=== PATIENT | male | born 1970 | race Caucasian/White ===

== ENCOUNTER 2020-05-27 13:40 | Inpatient (IN) | payer OTHER ==
--- NOTE | 2020-05-27 14:03 | BHS.RME ---
Substance Use & Tx History - Substance Use History Alcohol Substance amount: 1/5 Vodka Frequency of use: Daily Substance route: Oral Date of Last Use: 05/26/20 (Began age 18y. NO seizures. Has had blackouts, last was mos ago. Admits to eye floral associate) Nicotine Substance amount: more than one pack Frequency of use: Daily Substance route: Smoking Date of Last Use: 05/27/20 (began age 24 y) - Last Treatment Date of last treatment: 2 mos ago [facility] Treatment type: Substance Use Disorder (ROLANDO) Where was last treatment: Detox Physical/Psych/Mental Status - Behavior General Behavior: Increased activity (restlessness, agitation) Eye Contact: Normal - Cooperativeness Cooperativeness: Cooperative - Thinking Thought Processes: Tight Thought content: Future oriented - Physical Health Problems Is patient presently having any pain?: No Does patient presently have any injuries (include location): No Does patient currently have a fever: No CIWA Nausea/Vomitin-Int. Nausea w/Dry Heave Muscle Tremors: 4-Moderate,w/Arms Extend Anxiety: 4-Mod. Anxious/Guarded Agitation: 4-Moderately Restless Paroxysmal Sweats: 3 Orientation: 0-Oriented Tacttile Disturbances: 1-Very Mild Itch/Numbness Auditory Disturbances: 0-None Visual Disturbances: 0-None Headache: 0-None Present CIWA-Ar Total Score: 20
[2020-05-27] MEDS ORDERED: MAGNESIUM CITRATE 300 ML BOTTLE PO PRN (14:09)
[2020-05-27] MEDS ORDERED: IBUPROFEN 400 MG TABLET (FP) PO PRN (14:09)
[2020-05-27] MEDS ORDERED: ACETAMINOPHEN 325 MG TABLET (FP) PO PRN ×2 (14:09)
[2020-05-27] MEDS ORDERED: ONDANSETRON *ODT* 4 MG TABLET SL PRN (14:09)
[2020-05-27] MEDS ORDERED: BISMUTH SUBSALICYLATE 524 MG/30 ML UD PO PRN (14:09)
[2020-05-27] MEDS ORDERED: METHOCARBAMOL 500 MG TABLET PO PRN (14:09)
[2020-05-27] MEDS ORDERED: MAGNESIUM HYDROX 2400MG/30ML ORAL SUSPENSION 30 ML CUP PO PRN (14:09)
[2020-05-27] MEDS ORDERED: MAG HYDROX/AL HYDROX/SIMETH 30 ML UNIT-DOSE CUP PO PRN (14:09)
[2020-05-27] MEDS ORDERED: MENTHOL/PHENOL 1 EACH UD MM PRN (14:09)
--- NOTE | 2020-05-27 14:09 | HP ---
CIWA Score Nausea/Vomitin-Int. Nausea w/Dry Heave Muscle Tremors: 4-Moderate,w/Arms Extend Anxiety: 4-Mod. Anxious/Guarded Agitation: 4-Moderately Restless Paroxysmal Sweats: 3 Orientation: 0-Oriented Tacttile Disturbances: 1-Very Mild Itch/Numbness Auditory Disturbances: 0-None Visual Disturbances: 0-None Headache: 0-None Present CIWA-Ar Total Score: 20 - Admission Criteria OASAS Guidelines: Admission for Medically Managed Detox: Requires at least one of the followin. CIWA greater than 12 2. Seizures within the past 24 hours 3. Delirium tremens within the past 24 hours 4. Hallucinations within the past 24 hours 5. Acute intervention needed for co occurring medical disorder 6. Acute intervention needed for co occurring psychiatric disorder 7. Severe withdrawal that cannot be handled at a lower level of care (continued vomiting, continued diarrhea, abnormal vital signs) requiring intravenous medication and/or fluids 8. Admitting History and Physical - Admission Chief Complaint: Mr. Quinteros is a 49 yo man who presents to [facility] [place] asking for detox from alcohol use. History of Present Illness: Mr. Quinteros is a 49 yo man who presents to [facility] [place] asking for detox from alcohol use. He was last here in 2016. PMH/PSH/ Legal: none Psych: depression on no meds, sees "colors" when detoxing, no other hallucinations SOC: homeless Substance Use History Alcohol Substance amount: 1/5 Vodka Frequency of use: Daily Substance route: Oral Date of Last Use: 05/26/20 (Began age 18y. NO seizures. Has had blackouts, last was mos ago. 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) Nicotine Substance amount: more than one pack Frequency of use: Daily Substance route: Smoking Date of Last Use: 05/27/20 (began age 24 y) - Last Treatment Date of last treatment: 2 mos ago [facility] Treatment type: Substance Use Disorder (ROLANDO) Where was last treatment: Detox - Smoking History Smoking history: Current every day smoker Have you smoked in the past 12 months: Yes Aproximately how many cigarettes per day: 30 - Alcohol/Substance Use Hx Alcohol Use: Yes Admission ROS S - HPI Allergies/Adverse Reactions: Allergies Allergy/AdvReac Type Severity Reaction Status Date / Time No Known Allergies Allergy Verified 05/27/20 14:40 Exam Limitations: No Limitations - Ebola screening Have you traveled outside of the country in the last 21 days: No Have you been sick,other than usual withdrawal symptoms: No Do you have a fever: No - Review of Systems Constitutional: Changes in sleep (Trouble falling and staying asleep. Lost about 12 lbs in the past few weeks), Unintentional Wgt. Loss EENT: reports: No Symptoms Reported Respiratory: reports: No Symptoms reported Cardiac: reports: No Symptoms Reported GI: reports: Nausea, Vomiting (attributes to withdrawal) : reports: No Symptoms Reported Musculoskeletal: reports: No Symptoms Reported Integumentary: reports: No Symptoms Reported Neuro: reports: Tingling (fingers and toes tingle for one week. No pain in neck, low back), Tremors (withdrawal sx) Endocrine: reports: No Symptoms Reported Hematology: reports: No Symptoms Reported Psychiatric: reports: Depressed (no SI/HI) Patient History - Patient Medical History Hx Anemia: No Hx Asthma: No Hx Chronic Obstructive Pulmonary Disease (COPD): No Hx Cancer: No Hx Cardiac Disorders: No Hx Congestive Heart Failure: No Hx Hypertension: No Hx Hypercholesterolemia: No Hx Pacemaker: No HX Cerebrovascular Accident: No Hx Seizures: No Hx Dementia: No Hx Diabetes: No Hx Gastrointestinal Disorders: No Hx Liver Disease: No Hx Genitourinary Disorders: No Hx Sexually Transmitted Disorders: No Hx Renal Disease (ESRD): No Hx Thyroid Disease: No Hx Human Immunodeficiency Virus (HIV): No Hx Hepatitis C: No Hx Depression: Yes Hx Suicide Attempt: No Hx Bipolar Disorder: No Hx Schizophrenia: No - Patient Surgical History Past Surgical History: No Hx Neurologic Surgery: No Hx Cataract Extraction: No Hx Cardiac Surgery: No Hx Lung Surgery: No Hx Breast Surgery: No Hx Breast Biopsy: No Hx Abdominal Surgery: No Hx Appendectomy: No Hx Cholecystectomy: No Hx Genitourinary Surgery: No Hx Section: No Hx Orthopedic Surgery: No Anesthesia Reaction: (n/a) - PPD History Date: 04/16/16 - Smoking Cessation Smoking history: Current every day smoker Have you smoked in the past 12 months: Yes Aproximately how many cigarettes per day: 30 Cigars Per Day: 0 Hx Chewing Tobacco Use: No Initiated information on smoking cessation: Yes 'Breaking Loose' booklet given: 05/27/20 - Substances abused Alcohol Substance route: Oral Frequency: Daily Amount used: 5th of vodka Age of first use: 18 Date of last use: 05/26/20 Admission Physical Exam S - Vital Signs Vital Signs: UDS: benzo - Physical General Appearance: Yes: Nourished, Appropriately Dressed, Disheveled, Tremorous, Anxious, Other (vomitted x 1 in [facility]) HEENTM: Yes: EOMI, Hearing grossly Normal, Normocephalic, Normal Voice Respiratory: Yes: Lungs Clear, No Respiratory Distress, No Accessory Muscle Use Neck: Yes: Within Normal Limits, Supple Breast: Yes: Breast Exam Deferred Cardiology: Yes: Regular Rhythm, Regular Rate Abdominal: Yes: Normal Bowel Sounds, Non Tender, Flat, Soft Back: Yes: Normal Inspection Musculoskeletal: Yes: Gait Steady Extremities: Yes: Normal Inspection, Non-Tender, Other (stool on leg) Neurological: Yes: Alert, Normal Response Integumentary: Yes: Normal Color, Dry, Warm - Diagnostic (1) Depression Current Visit: Yes Status: Acute (2) Alcohol dependence with uncomplicated withdrawal Current Visit: Yes Status: Acute (3) Nicotine dependence Current Visit: Yes Status: Chronic Qualifiers: Nicotine product type: cigarettes Substance use status: uncomplicated Qualified Code(s): F17.210 - Nicotine dependence, cigarettes, uncomplicated Cleared for Admission [facility] - Detox or Rehab [facility] Level of Care: Medically Managed Detox Regimen/Protocol: Librium Breathalyzer - Breathalyzer Breathalyzer: 0.061 Inpatient Rehab Admission - Rehab Decision to Admit Inpatient rehab admission?: No
[2020-05-27 14:47] VITALS: BMI 23.4
[2020-05-27] MEDS: chlordiazePOXIDE HCL 25 MG CAPSULE PO PRN (15:43)
[2020-05-27] MEDS: NICOTINE 21 MG/24 HOURS TOPICAL PATCH TD SCH (15:49)
[2020-05-27] MEDS: chlordiazePOXIDE HCL 25 MG CAPSULE PO SCH ×2 (17:44→22:00)
[2020-05-27] MEDS: hydrOXYzine PAMOATE 25 MG CAPSULE (FP) PO SCH ×2 (19:05→21:21)
[2020-05-27] MEDS: THIAMINE HCL 100 MG TABLET (FP) PO SCH (21:21)
[2020-05-27] MEDS ORDERED: MELATONIN 5 MG TABLETS PO SCH (22:00)
[2020-05-28] MEDS: hydrOXYzine PAMOATE 25 MG CAPSULE (FP) PO SCH (05:49)
[2020-05-28] MEDS: chlordiazePOXIDE HCL 25 MG CAPSULE PO SCH ×4 (05:49→22:00)
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
[2020-05-28] MEDS ORDERED: hydrOXYzine PAMOATE 25 MG CAPSULE (FP) PO PRN (09:17)
[2020-05-28] MEDS: chlordiazePOXIDE HCL 25 MG CAPSULE PO PRN ×2 (09:19→19:40)
[2020-05-28] MEDS: SERTRALINE HCL 50 MG TABLET (FP) PO SCH (10:13)
[2020-05-28] MEDS: PRENATAL VITAMINS W/ FOLIC ACID TABLET (FP) PO SCH (10:13)
[2020-05-28] MEDS: NICOTINE 21 MG/24 HOURS TOPICAL PATCH TD SCH (10:14)
[2020-05-28] MEDS: TOPIRAMATE 100 MG TABLET PO SCH ×2 (11:08→22:00)
--- NOTE | 2020-05-28 11:51 | PN ---
S CIWA - CIWA Score Nausea/Vomitin Muscle Tremors: 3 Anxiety: 3 Agitation: 3 Paroxysmal Sweats: No Perspiration Orientation: 0-Oriented Tacttile Disturbances: 1-Very Mild Itch/Numbness Auditory Disturbances: 0-None Visual Disturbances: 0-None Headache: 2-Mild CIWA-Ar Total Score: 15 BHS Progress Note (SOAP) Subjective: alert,irritable,anxious,interrupted sleep,tremor,pain in the body and back,nausea Objective: 05/28/20 11:57 Vital Signs Temperature 98.1 F 05/28/20 08:21 Pulse Rate 111 H 05/28/20 08:21 Respiratory Rate 16 05/28/20 08:21 Blood Pressure 115/65 05/28/20 08:21 O2 Sat by Pulse Oximetry (%) 95 05/28/20 05:48 05/28/20 11:58 labs pending Assessment: 05/28/20 11:58 withdrawal symptom Plan: continue detox librium regimen,Dr Ureña consultation greatly appreciated
[2020-05-28 12:25] LABS: HEMATOCRIT 38.3 % (35.4-49); HEMOGLOBIN 13.1 GM/dL (11.7-16.9); MCH 32.9 pg (25.7-33.7); MCHC 34.4 g/dl (32.0-35.9); MEAN CELL VOLUME 95.6 fl (80-96); MEAN PLT VOLUME 8.2 fl (7.5-11.1); PLATELET COUNT 76 K/MM3 (134-434); RDW 16.1 % (11.9-15.9); WHITE BLOOD COUNT 4.5 K/mm3 (4.0-10.0)
[2020-05-28 12:42] LABS: ALBUMIN 3.2 g/dl (3.4-5.0); BLOOD UREA NITROGEN 7.7 mg/dL (7-18); CALCIUM 9.3 mg/dL (8.5-10.1); CREATININE 0.6 mg/dL (0.55-1.3); POTASSIUM 3.2 mmol/L (3.5-5.1); TOT PROT 6.3 g/dl (6.4-8.2)
[2020-05-28] MEDS: NICOTINE POLACRILEX 2 MG GUM BUC PRN ×2 (19:40→22:05)
[2020-05-28] MEDS ORDERED: SUVOREXANT 10 MG TABLET PO PRN (22:00)
[2020-05-28] MEDS ORDERED: ARIPiprazole 10 MG TABLET PO SCH (22:00)
[2020-05-28] MEDS: THIAMINE HCL 100 MG TABLET (FP) PO SCH (22:00)
[2020-05-29] MEDS: chlordiazePOXIDE HCL 25 MG CAPSULE PO SCH ×2 (06:03→10:40)
[2020-05-29] MEDS: NICOTINE POLACRILEX 2 MG GUM BUC PRN ×2 (06:05→10:40)
[2020-05-29] MEDS: NICOTINE 21 MG/24 HOURS TOPICAL PATCH TD SCH (10:40)
[2020-05-29] MEDS: PRENATAL VITAMINS W/ FOLIC ACID TABLET (FP) PO SCH (10:40)
[2020-05-29] MEDS: SERTRALINE HCL 50 MG TABLET (FP) PO SCH (10:40)
[2020-05-29] MEDS: TOPIRAMATE 100 MG TABLET PO SCH (10:40)
--- NOTE | 2020-05-29 10:54 | PN ---
S CIWA - CIWA Score Nausea/Vomitin Muscle Tremors: 2 Anxiety: 2 Agitation: 2 Paroxysmal Sweats: No Perspiration Orientation: 0-Oriented Tacttile Disturbances: 1-Very Mild Itch/Numbness Auditory Disturbances: 0-None Visual Disturbances: 0-None Headache: 1-Very Mild CIWA-Ar Total Score: 10 S Progress Note (SOAP) Subjective: alert,irritable,anxious,interrupted sleep,tremor,aching pain,nausea Objective: 05/29/20 10:53 Vital Signs Temperature 97.4 F L 05/29/20 08:49 Pulse Rate 100 H 05/29/20 08:49 Respiratory Rate 16 05/29/20 08:49 Blood Pressure 118/71 05/29/20 08:49 O2 Sat by Pulse Oximetry (%) 97 05/29/20 08:49 05/29/20 10:53 Laboratory Last Values WBC 4.5 K/mm3 (4.0-10.0) 05/28/20 07:45 RBC 4.00 M/mm3 (4.00-5.60) 05/28/20 07:45 Hgb 13.1 GM/dL (11.7-16.9) 05/28/20 07:45 Hct 38.3 % (35.4-49) D 05/28/20 07:45 MCV 95.6 fl (80-96) 05/28/20 07:45 MCH 32.9 pg (25.7-33.7) 05/28/20 07:45 MCHC 34.4 g/dl (32.0-35.9) 05/28/20 07:45 RDW 16.1 % (11.9-15.9) H 05/28/20 07:45 Plt Count 76 K/MM3 (134-434) L D 05/28/20 07:45 MPV 8.2 fl (7.5-11.1) 05/28/20 07:45 Sodium 136 mmol/L (136-145) 05/28/20 07:45 Potassium 3.2 mmol/L (3.5-5.1) L 05/28/20 07:45 Chloride 92 mmol/L (98-107) L 05/28/20 07:45 Carbon Dioxide 32 mmol/L (21-32) 05/28/20 07:45 Anion Gap 12 MMOL/L (8-16) 05/28/20 07:45 BUN 7.7 mg/dL (7-18) 05/28/20 07:45 Creatinine 0.6 mg/dL (0.55-1.3) 05/28/20 07:45 Est GFR (CKD-EPI)AfAm 138.77 05/28/20 07:45 Est GFR (CKD-EPI)NonAf 119.73 05/28/20 07:45 Random Glucose 150 mg/dL (74-106) H 05/28/20 07:45 Calcium 9.3 mg/dL (8.5-10.1) 05/28/20 07:45 Total Bilirubin 1.0 mg/dL (0.2-1) 05/28/20 07:45 AST 112 U/L (15-37) H 05/28/20 07:45 ALT 88 U/L (13-61) H 05/28/20 07:45 Alkaline Phosphatase 150 U/L (45-117) H 05/28/20 07:45 Total Protein 6.3 g/dl (6.4-8.2) L 05/28/20 07:45 Albumin 3.2 g/dl (3.4-5.0) L 05/28/20 07:45 Syphilis Serology Non-reactive (NONREACTIVE) 05/28/20 07:45 COVID-19 ([facility]J) Not detected (Not Detected) 05/27/20 14:45 HIV Ag/Ab Combo Qual Negative (NEGATIVE) 05/28/20 07:45 Assessment: 05/29/20 10:57 withdrawal symptom Plan: continue detox librium regimen,,k dur 20 meq po bid k is 3.2,glucose 150,will repeat cmp,fasting glucose and inr in am
[2020-05-29 13:44] VITALS: BP 120/79; PULSE 93; TEMP 98.2
--- NOTE | 2020-05-29 15:26 | PN ---
[facility] CIWA - CIWA Score Nausea/Vomitin-No Nausea/No Vomiting Muscle Tremors: None Anxiety: 1-Mildly Anxious Agitation: 0-Normal Activity Paroxysmal Sweats: No Perspiration Orientation: 0-Oriented Tacttile Disturbances: 0-None Auditory Disturbances: 0-None Visual Disturbances: 0-None Headache: 0-None Present CIWA-Ar Total Score: 1 S Progress Note (SOAP) Subjective: alert,no complaint Objective: 05/29/20 15:24 Vital Signs Temperature 98.2 F 05/29/20 12:59 Pulse Rate 93 H 05/29/20 12:59 Respiratory Rate 19 05/29/20 12:59 Blood Pressure 120/79 05/29/20 12:59 O2 Sat by Pulse Oximetry (%) 97 05/29/20 12:59 Assessment: 05/29/20 15:24 no withdrawal symptom Plan: stable for discharge today,left style diet modification,no sugar,follow up with after care program as [facility],dump attendant notified, he will send psy medication to [facility]
--- NOTE | 2020-05-29 15:29 | DS ---
[facility] Detox Discharge Summary Admission Date: 05/27/20 Discharge Date: 05/29/20 - History Present History: Alcohol Dependence Additional Comments: alert,oriented x 3 ambulation on the unit lung clear on auscultation bilaterally abdomen soft,no distension,no pain,no tenderness patient would like to leave stated he is feeling well,no tremor, stable for discharge today follow up with [facility] center as arrangement life style modification on diet no sugar left the unit in stable condition total time of discharge 35 minutes Pertinent Past History: bipolar 2 disorder ptsd - Physical Exam Results Vital Signs: Vital Signs Temperature 98.2 F 05/29/20 12:59 Pulse Rate 93 H 05/29/20 12:59 Respiratory Rate 19 05/29/20 12:59 Blood Pressure 120/79 05/29/20 12:59 O2 Sat by Pulse Oximetry (%) 97 05/29/20 12:59 Pertinent Admission Physical Exam Findings: withdrawal signs and symptom Laboratory Last Values WBC 4.5 K/mm3 (4.0-10.0) 05/28/20 07:45 RBC 4.00 M/mm3 (4.00-5.60) 05/28/20 07:45 Hgb 13.1 GM/dL (11.7-16.9) 05/28/20 07:45 Hct 38.3 % (35.4-49) D 05/28/20 07:45 MCV 95.6 fl (80-96) 05/28/20 07:45 MCH 32.9 pg (25.7-33.7) 05/28/20 07:45 MCHC 34.4 g/dl (32.0-35.9) 05/28/20 07:45 RDW 16.1 % (11.9-15.9) H 05/28/20 07:45 Plt Count 76 K/MM3 (134-434) L D 05/28/20 07:45 MPV 8.2 fl (7.5-11.1) 05/28/20 07:45 Sodium 136 mmol/L (136-145) 05/28/20 07:45 Potassium 3.2 mmol/L (3.5-5.1) L 05/28/20 07:45 Chloride 92 mmol/L (98-107) L 05/28/20 07:45 Carbon Dioxide 32 mmol/L (21-32) 05/28/20 07:45 Anion Gap 12 MMOL/L (8-16) 05/28/20 07:45 BUN 7.7 mg/dL (7-18) 05/28/20 07:45 Creatinine 0.6 mg/dL (0.55-1.3) 05/28/20 07:45 Est GFR (CKD-EPI)AfAm 138.77 05/28/20 07:45 Est GFR (CKD-EPI)NonAf 119.73 05/28/20 07:45 Random Glucose 150 mg/dL (74-106) H 05/28/20 07:45 Calcium 9.3 mg/dL (8.5-10.1) 05/28/20 07:45 Total Bilirubin 1.0 mg/dL (0.2-1) 05/28/20 07:45 AST 112 U/L (15-37) H 05/28/20 07:45 ALT 88 U/L (13-61) H 05/28/20 07:45 Alkaline Phosphatase 150 U/L (45-117) H 05/28/20 07:45 Total Protein 6.3 g/dl (6.4-8.2) L 05/28/20 07:45 Albumin 3.2 g/dl (3.4-5.0) L 05/28/20 07:45 Syphilis Serology Non-reactive (NONREACTIVE) 05/28/20 07:45 COVID-19 ([facility]) Not detected (Not Detected) 05/27/20 14:45 HIV Ag/Ab Combo Qual Negative (NEGATIVE) 05/28/20 07:45 Vital Signs Temperature 98.2 F 05/29/20 12:59 Pulse Rate 93 H 05/29/20 12:59 Respiratory Rate 19 05/29/20 12:59 Blood Pressure 120/79 05/29/20 12:59 O2 Sat by Pulse Oximetry (%) 97 05/29/20 12:59 - Treatment Hospital Course: Detox Protocol Followed, Detoxed Safely, Responded well, Discharged Condition Good Patient has Accepted a Rehab Referral to: declined - Medication Discharge Medications: Ambulatory Orders Aripiprazole [Abilify] 20 mg PO HS #14 tablet 05/29/20 Sertraline HCl [Zoloft -] 50 mg PO DAILY #14 tablet 05/29/20 Topiramate [Topamax -] 100 mg PO BID #28 tablet 05/29/20 - Diagnosis (1) Alcohol dependence with uncomplicated withdrawal Current Visit: Yes Status: Acute (2) Depression Current Visit: Yes Status: Acute (3) Nicotine dependence Current Visit: Yes Status: Chronic Qualifiers: Nicotine product type: cigarettes Substance use status: uncomplicated Qualified Code(s): F17.210 - Nicotine dependence, cigarettes, uncomplicated (4) ADHD (attention deficit hyperactivity disorder) Current Visit: No Status: Chronic (5) Bipolar II disorder Current Visit: No Status: Chronic - AMA Did Patient Leave Against Medical Advice: No
[2020-05-30] MEDS ORDERED: chlordiazePOXIDE HCL 10 MG CAPSULE PO PRN
[2020-05-30] MEDS ORDERED: chlordiazePOXIDE HCL 10 MG CAPSULE PO SCH (05:00)
[2020-05-31] MEDS ORDERED: chlordiazePOXIDE HCL 10 MG CAPSULE PO SCH (05:00)
[2020-06-01] MEDS ORDERED: chlordiazePOXIDE HCL 10 MG CAPSULE PO ONE (05:00)
== END 2020-05-29 16:12 | disposition home or self-care (01) | DRG 775 ==
LOC: YASAS 13:40 → Y6N 14:37
PROVIDERS: ADMIT Allergy & Immunology; ATTEND Allergy & Immunology
PROC: HZ2ZZZZ Detoxification Services for Substance Abuse Treatment (ICD-10-PCS; principal; 2020-05-27)
DX: F10.230 Alcohol dependence with withdrawal, uncomplicated (principal); F17.210 Nicotine dependence, cigarettes, uncomplicated; F10.280 Alcohol dependence with alcohol-induced anxiety disorder; F10.24 Alcohol dependence with alcohol-induced mood disorder; F10.282 Alcohol dependence with alcohol-induced sleep disorder; F90.9 Attention-deficit hyperactivity disorder, unspecified type; F32.9 Major depressive disorder, single episode, unspecified; Z62.810 Personal history of physical and sexual abuse in childhood; R63.4 Abnormal weight loss; Z68.23 Body mass index [BMI] 23.0-23.9, adult; Z59.0 Homelessness; Z86.59 Personal history of other mental and behavioral disorders
CPT/HCPCS: 36415; 80053; 85027; 86780; 87389; Q0162; U0003